=== PATIENT | female | born 1995 | race Caucasian/White ===

== ENCOUNTER 2016-09-27 15:36 | Emergency (ER) | payer BC ==
[2016-09-27 15:48] VITALS: BP 144/90
--- NOTE | 2016-09-27 16:19 | UC ---
Cardiac HPI - HPI Summary HPI Summary: The patient comes in today for: 1. Chest pain/tightness/palpitations: Onset: Yesterday. Palliative/provocative: Nothing makes her symptoms better or worse except panic attacks. Quality: Tightness. Region: Retrosternal Severity: 09/10 Time: She states that when she is distracted, she does not notice it. Associated symptoms: Shortness of breath: "Kind of--it feels like I can't get a full breath." Palpitations: Present. Radiation: "Whole left arm had a deep aching numb." "It had a 'nagging' feeling last night." Previous disease: None. Home treatment: NOne. Blood disorders in the family: None. BCP: She is on this. Cancer history: None. LMP: 5 days ago. * - History of Current Complaint Chief Complaint: UCChestPain Stated Complaint: CHEST PAIN Time Seen by Provider: 09/27/16 16:11 Hx Obtained From: Patient - Allergy/Home Medications Allergies/Adverse Reactions: Allergies Allergy/AdvReac Type Severity Reaction Status Date / Time No Known Allergies Allergy Verified 11/11/15 13:16 PMH/Surg Hx/FS Hx/Imm Hx Previously Healthy: No - Family planning/BCP Endocrine History Of: Denies: Diabetes, Thyroid Disease, Hyperthyroidism, Hypothyroidism, Dyslipidemia Cardiovascular History Of: Denies: Cardiac Disorders, Hypertension, Pacemaker/ICD, Myocardial Infarction , Congestive Heart Failure, Atrial Fibrillation, Deep Vein Thrombosis, Bleeding Disorders Respiratory History Of: Reports: Asthma - EXERCISE INDUCED Denies: COPD, Bronchitis, Pneumonia, Pulmonary Embolism GI/ History Of: Denies: Gastroesophageal Reflux, Ulcer, Gastrointestinal Bleed, Gall Bladder Disease, Kidney Stones, Diverticulitis, Renal Disease, Urosepsis Neurological History Of: Reports: Migraine - OCC Denies: TIA, CVA, Dementia, Seizures Psychological History Of: Denies: Anxiety, Depression, Bipolar Disorder, Schizophrenia, Post Traumatic Stress Disorder Cancer History Of: Denies: Lung Cancer, Colorectal Cancer, Breast Cancer, Prostate Cancer, Cervical Cancer Other History Of: Negative For: HIV, Hepatitis B, Hepatitis C, Anticoagulant Therapy - Surgical History Surgical History: Yes Surgery Procedure, Year, and Place: WISDOM TEETH - Family History Known Family History: Positive: Cardiac Disease Negative: Hypertension, Diabetes - Social History Occupation: Student Alcohol Use: Rare Substance Use Type: None Smoking Status (MU): Never Smoked Tobacco Review of Systems Constitutional: Negative Skin: Negative Eyes: Negative ENT: Negative Respiratory: Negative Cardiovascular: Palpitations, Chest Pain Gastrointestinal: Negative Genitourinary: Negative All Other Systems Reviewed And Are Negative: Yes Physical Exam Triage Information Reviewed: Yes Appearance: Well-Appearing, No Pain Distress, Well-Nourished, Other: - Patient was "stressed out" feeling anxious. She was not crying, but appeared like she could break out to cry at any minute. Vital Signs: Initial Vital Signs Temp 98.9 F 09/27/16 15:41 Pulse 111 09/27/16 15:41 Resp 18 09/27/16 15:41 BP 144/90 09/27/16 15:41 Pulse Ox 98 09/27/16 15:41 Vital Signs Reviewed: Yes Eyes: Positive: Conjunctiva Clear. Negative: Discharge ENT: Positive: Hearing grossly normal. Negative: Pharyngeal erythema, Nasal congestion, Nasal drainage, TM bulging, TM dull, TM red, Tonsillar swelling, Tonsillar exudate Dental: Negative: Gross Decay/Caries @, Dental Fracture @ Neck: Positive: Supple, Nontender, No Lymphadenopathy. Negative: Nuchal Rigidity Respiratory: Positive: Chest non-tender, Lungs clear, No respiratory distress, No accessory muscle use. Negative: Crackles, Wheezing Cardiovascular: Positive: RRR, No Murmur Abdomen Description: Positive: Nontender, No Organomegaly, Soft. Negative: Distended, Guarding, Peritoneal Signs, Splenomegaly Musculoskeletal: Positive: Strength Intact, ROM Intact, No Edema, Other: - pressure to the left sternal border does elicit pain, but it is a different pain from the one she comes in for.. Negative: Strength Limited @ Neurological: Positive: Alert, Muscle Tone Normal Psychological: Positive: Age Appropriate Behavior, Consolable Skin: Negative: rashes, breakdown Diagnostics - Laboratory Diagnostic Studies Completed/Ordered: EKG: Rate: 122. Rhythm: sinus tachycardia. Ectopy: None. Acute changes: None. - Assessment/Plan Course Of Treatment: Patient was told that I did not know what was causing her chest pain symptoms. The patient was also told that there are many causes for chest pain--. some which are benign and some which are life-threatening. Furthermore, it was. mentioned that the life-threatening causes of chest pain can present with. minimal, atypical, or even no symptoms. Sakina of these facts and the fact. that we don't have here all the testing methods commonly used to assess chest. pain, and their timely resuts, my recommendation is for the patient to go to. the [facility] [place]. She asked if stress could cause her symptoms. She was told that it was my experience over the years that stress can cause a multitude of somatic complaints including chest pain. All her questions were answered and she decided to not go to the ER--unless she got worse. She asked about her anxiety and treatment. Treatment options were explained. She wanted to try lorazepam. - Clinical Impression Provider Diagnoses: Chest pain. Anxiety Discharge - Discharge Plan Condition: Stable Disposition: HOME Patient Education Materials: Anxiety (ED), Chest Pain (ED) Referrals: No Primary Care Phys,NOPCP [Primary Care Provider] - As Soon As Possible (If you are not going to the ER as recommended, please see your [facility] providers at [facility] as soon as you can tomorrow. If you get worse, please go to the ER. )
== END 2016-09-27 17:23 | disposition left against medical advice (07) ==
LOC: UCEAST 15:36
DX: R07.89 Other chest pain (principal); F41.9 Anxiety disorder, unspecified; R00.0 Tachycardia, unspecified
CPT/HCPCS: 93005; 99212; G0463